=== PATIENT | male | born 1955 | race Caucasian/White ===

== ENCOUNTER 2016-09-06 16:31 | Observation (INO) | payer OTHER, BC ==
[~2016-09-06] VITALS: Ht 167.6 cm; Wt 85.2 kg
[~2016-09-06 16:31] MED LIST: ASPIRIN81 M1 PO; BENICAR20 MG PO; CHLORTHALIDONE25 MG PO
[2016-09-06 17:39] LABS: HEMATOCRIT 40.4 % (38.0-50.0); MCH 29.2 PG (29.0-34.0); MCHC 33.4 G/DL (30.0-36.0); MCV 87.4 FL (86-99); MEAN PLAT.VOLUME 10.4 uM^3 (9.0-12.4); PLATELET COUNT 212 K/uL (156-360); RBC DIS.WIDTH-CV 12.5 % (11.8-14.6); RBC DIS.WIDTH-SD 39.9 % (39-53); RED BLOOD COUNT 4.62 M/uL (4.00-5.50); WHITE BLOOD COUNT 8.5 K/uL (4.1-10.2)
[2016-09-06 17:52] LABS: CHLORIDE 107 mEq/L (99-109); POTASSIUM 4.3 mEq/L (3.7-5.4); SODIUM 141 mEq/L (136-147)
[2016-09-06 17:53] LABS: GLUCOSE 86 mg/dL (70-99)
[2016-09-06 17:55] LABS: ANION GAP 12 MEQ/L (2-14)
[2016-09-06 17:57] LABS: GFR ESTIMATE (CALCULATED) > 59 mL/min/
[2016-09-06 17:58] LABS: UREA NITROGEN (BUN) 15 mg/dL (9-23)
[2016-09-06 18:02] LABS: TROP-I INTERPRETATION NEGATIVE; TROPONIN-I < 0.01 ng/mL (0.0-0.30)
[2016-09-06] MEDS ORDERED: PLAVIX75 MG PO (18:16)
[2016-09-06] MEDS ORDERED: LO-DOSE ASPIRIN81 M1 PO (18:16)
[2016-09-06] MEDS ORDERED: ZOCOR20 MG PO (18:17)
[2016-09-06] MEDS ORDERED: COZAAR100 MG PO (18:17)
[2016-09-06] MEDS ORDERED: NORVASC10 MG PO (18:17)
[2016-09-06 18:58] LABS: D-DIMER ELISA 0.36 mg/L FEU (< 0.57)
[2016-09-06] MEDS ORDERED: MEN 50 PLUS MU1 EACH PO (20:30)
[2016-09-06] MEDS ORDERED: NAPROXEN500 MG PO (20:30)
[2016-09-07 00:29] VITALS: BP 120/87
[2016-09-07 00:44] LABS: TROP-I INTERPRETATION NEGATIVE; TROPONIN-I < 0.01 ng/mL (0.0-0.30)
[2016-09-07 04:05] VITALS: BP 123/72
[2016-09-07 06:19] LABS: HEMATOCRIT 37.2 % (38.0-50.0); MCH 28.8 PG (29.0-34.0); MCHC 33.1 G/DL (30.0-36.0); MCV 87.1 FL (86-99); MEAN PLAT.VOLUME 10.3 uM^3 (9.0-12.4); PLATELET COUNT 185 K/uL (156-360); RBC DIS.WIDTH-CV 12.4 % (11.8-14.6); RBC DIS.WIDTH-SD 39.7 % (39-53); RED BLOOD COUNT 4.27 M/uL (4.00-5.50)
[2016-09-07 06:23] LABS: WHITE BLOOD COUNT 5.1 K/uL (4.1-10.2)
[2016-09-07 06:55] LABS: TROP-I INTERPRETATION NEGATIVE; TROPONIN-I < 0.01 ng/mL (0.0-0.30)
[2016-09-07 06:56] LABS: ALKALINE PHOSPHATASE 52 IU/L (3-129); ANION GAP 8 MEQ/L (2-14); CHLORIDE 109 MEQ/L (99-109); GFR ESTIMATE (CALCULATED) > 59 mL/min/; GLUCOSE 93 mg/dL (70-99); POTASSIUM 4.1 MEQ/L (3.7-5.4); SAMPLE HEMOLYSIS CHECK 0; SAMPLE ICTERIC CHECK 0; SAMPLE LIPEMIA CHECK 0; SODIUM 142 MEQ/L (136-147); TOTAL BILIRUBIN 0.3 MG/DL (0.0-1.0); UREA NITROGEN (BUN) 15 mg/dL (9-23)
[2016-09-07 09:00] VITALS: BP 136/102
[2016-09-07 11:40] VITALS: BP 122/85
== END 2016-09-07 14:46 | disposition home or self-care (01) ==
LOC: EME 16:31 → 5WEST 21:10 → EDOF 21:10 → 5WEST 09-07 00:06
PROVIDERS: Internal Medicine
DX: R07.89 Other chest pain (principal); K21.9 Gastro-esophageal reflux disease without esophagitis; R13.10 Dysphagia, unspecified; I10 Essential (primary) hypertension; Z86.73 Personal history of transient ischemic attack (TIA), and cerebral infarction without residual deficits; E78.00 Pure hypercholesterolemia, unspecified; I27.2 Other secondary pulmonary hypertension; Z87.891 Personal history of nicotine dependence
CPT/HCPCS: 70140; 70450; 70551; 71020; 80048; 80053; 84484; 85027; 85379; 93005; 93880; 99281; 99285; C9113; G0378; J1644; J7030

== ENCOUNTER → 2016-11-18 | Outpatient (CLI) | payer OTHER, BC ==
[~2016-11-18] VITALS: Ht 172.7 cm; Wt 84.8 kg
[~2016-11-18] MED LIST changes: +COZAAR100 MG PO; +LO-DOSE ASPIRIN81 M1 PO; +MEN 50 PLUS MU1 EACH PO; +NAPROXEN500 MG PO; +NORVASC10 MG PO; +PLAVIX75 MG PO; +ZOCOR20 MG PO
== END | disposition home or self-care (01) ==
LOC: AMB 09:30
PROC: 0DB68ZX Excision of Stomach, Via Natural or Artificial Opening Endoscopic, Diagnostic (ICD-10-PCS; principal; 2016-11-18)
DX: K29.70 Gastritis, unspecified, without bleeding (principal); K44.9 Diaphragmatic hernia without obstruction or gangrene; R11.10 Vomiting, unspecified; K21.9 Gastro-esophageal reflux disease without esophagitis; Z87.11 Personal history of peptic ulcer disease; Z80.0 Family history of malignant neoplasm of digestive organs; R07.9 Chest pain, unspecified; I10 Essential (primary) hypertension; J44.9 Chronic obstructive pulmonary disease, unspecified; I65.21 Occlusion and stenosis of right carotid artery; I34.0 Nonrheumatic mitral (valve) insufficiency; I27.0 Primary pulmonary hypertension; Z87.891 Personal history of nicotine dependence; Z80.3 Family history of malignant neoplasm of breast; Z80.42 Family history of malignant neoplasm of prostate; Z80.1 Family history of malignant neoplasm of trachea, bronchus and lung; Z79.82 Long term (current) use of aspirin; Z88.8 Allergy status to other drugs, medicaments and biological substances
CPT/HCPCS: 88305; 88342 TC; J2250; J3010